=== PATIENT | female | born 1965 | race Caucasian/White ===

== ENCOUNTER 2016-07-01 09:37 | Emergency (ER) | payer OTHER ==
[2016-07-01] MEDS ORDERED: ONDANSETRON 4 MG/2ML 2 ML VIAL ONE (09:54)
[2016-07-01] MEDS ORDERED: KETOROLAC TROMETHAMINE 30 MG/ML 1 ML VIAL ONE (09:54)
[2016-07-01] MEDS ORDERED: SODIUM CHLORIDE 0.9% 1,000 ML ONE (09:54)
[2016-07-01] MEDS ORDERED: LORAZEPAM 2 MG/ML 1ML SDV ONE (09:55)
[2016-07-01 10:21] LABS: ABSOLUTE NEUTROPHIL COUNT 2.3 K/mm3 (1.8-7.7); BASO % 0.6 % (0.2-1.0); EOS % 0.6 % (0.9-2.9); HEMATOCRIT 40.2 % (37.0-47.0); HEMOGLOBIN 13.7 gm/l (12.0-16.0); IMM NEUT% 0.3 % (0-1); LYMPH # 0.9 (1.0-4.8); LYMPH % 24.9 % (15-45); MEAN CELL VOLUME 82.4 fl (81.0-99.0); MEAN CORPUSCULAR HEMOGLOBIN 28.1 pg (27.0-31.0); MEAN CORPUSCULAR HGB CONC 34.1 g/dl (33.0-37.0); MEAN PLATELET VOLUME 8.7 fl (7.4-10.4); MONO # 0.3 (0.0-0.8); MONO % 8.7 % (4-12); NEUT % 64.9 % (43-75); PLATELET COUNT 195 K/mm3 (130-400)
[2016-07-01 10:33] LABS: ALB/GLOB RATIO 1.4 (>1.0); ALBUMIN 4.4 gm/dL (3.5-5.7); CALCIUM 9.6 mg/dL (8.6-10.3)
--- NOTE | 2016-07-01 10:33 | RAD ---
History: Dyspnea. Comparison: 04/17/2012. Technique: 2 views Findings: There is the suggestion of a thoracic scoliotic deformity. The heart size is stable. No gross consolidation, effusion or pneumothorax is visualized. The hilar and mediastinal structures are intact. Impression: 1. A thoracic scoliotic deformity. 2. No active intrathoracic process.
== END 2016-07-01 11:38 | disposition home or self-care (01) ==
LOC: ED 09:37
DX: R51 Headache (principal); R11.0 Nausea; J45.909 Unspecified asthma, uncomplicated; F41.9 Anxiety disorder, unspecified
CPT/HCPCS: 83880; 85379; 85025; 80053; 84484; 71020; 96375 ×2; 99283 ×2; 96374; 96361; 93005; J2060; J1885; J2405; J7030